=== PATIENT | male | born 1995 | race African-American/Black ===

== ENCOUNTER 2017-05-18 11:15 | Emergency (ER) | payer SELFPAY ==
[~2017-05-18] VITALS: Ht 172.7 cm; Wt 90.0 kg
[2017-05-18 11:17] VITALS: BP 140/96; PULSE 103; RESP 16; TEMP 100.6; O2SAT 97
--- NOTE | 2017-05-18 11:37 | PD ---
HPI Chief Complaint: Cold / Flu Symptoms Time Seen by Provider: 11:25 Travel History International Travel<30 days: No Contact w/Intl Traveler<30days: No Traveled to known affect area: No History of Present Illness HPI 22-year-old male presents to emergency department with sore throat for 5 days. Patient states that he developed a sore throat after his sister was sick. Patient states he has felt feverish. States he has a productive cough with clear sputum. Denies chest pain or shortness of breath. Denies abdominal pain or diarrhea. States he has had a hard time swallowing secondary to the swelling and pain. Also states that he has been drooling. Patient says he has had one episode of nonbloody, nonbilious vomiting which occurred Saturday. Denies chronic medical issues or medication use. PFSH Past Medical History Medical History: Denies Significant Hx Diminished Hearing: No Immunizations Current: Yes Tetanus Vaccination: < 5 Years Past Surgical History Surgical History: No Previous Surgery Social History Alcohol Use: No Tobacco Use: No Substance Use: No Allergies-Medications (Allergen,Severity, Reaction): Coded Allergies: No Known Allergies (Unverified , 05/18/17) Reported Meds & Prescriptions Reported Meds & Active Scripts Active Amoxicillin 500 Mg Tab 500 Mg PO TID 10 Days Review of Systems Except as stated in HPI: all other systems reviewed are Neg Physical Exam Narrative GENERAL: Well-nourished, well-developed patient. SKIN: Focused skin assessment warm/dry. HEAD: Normocephalic. EYES: No scleral icterus. No injection or drainage. NECK: Supple, trachea midline. No JVD. mild cervical lymphadenopathy. Throat: Pharyngeal injection with tonsillar hypertrophy. Mildly bulging tonsillar pillars, right greater than left. CARDIOVASCULAR: Regular rate and rhythm without murmurs, gallops, or rubs. RESPIRATORY: Breath sounds equal bilaterally. No accessory muscle use. GASTROINTESTINAL: Abdomen soft, non-tender, nondistended. MUSCULOSKELETAL: No cyanosis, or edema. BACK: Nontender without obvious deformity. No CVA tenderness. Data Data Last Documented VS Vital Signs Date Time Temp Pulse Resp B/P (MAP) Pulse Ox O2 Delivery O2 Flow Rate FiO2 05/18/17 13:06 05/18/17 11:17 100.6 103 16 97 Orders Orders Influenzae A/B Antigen (12/16/17 11:34) Group A Rapid Strep Screen (05/18/17 11:34) Ed Discharge Order (05/18/17 12:33) [facility] Medical Decision Making Medical Screen Exam Complete: Yes Emergency Medical Condition: Yes Differential Diagnosis Strep pharyngitis, viral pharyngitis, allergic pharyngitis, tonsillar abscess Narrative Course 22-year-old male presents to emergency department with sore throat for 5 days. Patient states that he developed a sore throat after his sister was sick. Patient states he has felt feverish. States he has a productive cough with clear sputum. Denies chest pain or shortness of breath. Denies abdominal pain or diarrhea. States he has had a hard time swallowing secondary to the swelling and pain. Also states that he has been drooling. Patient says he has had one episode of nonbloody, nonbilious vomiting which occurred Saturday. Denies chronic medical issues or medication use. Vital signs stable Physical exam- tonsillar hypertrophy, erythema, no exudate. mild anterior cervical adenopathy. Lungs clear to auscultation bilaterally Flu negative. Strep positive. Patient be treated amoxicillin. Social work referrals. Tylenol or Motrin per package instructions. Advised follow-up with primary care physician within 2-3 days. Advised to return to the emergency department for worsening or persistent symptoms. Diagnosis Primary Impression: Pharyngitis Qualified Codes: J02.0 - Streptococcal pharyngitis Referrals: Primary Care Physician Additional Instructions: Follow-up with primary care physician within 2-3 days. Take all medications as prescribed. If your symptoms persist or worsen, return to the ED. He may use salt water gargles for your symptoms. Take Tylenol or Motrin per package instructions for symptom relief Scripts Amoxicillin (Amoxicillin) 500 Mg Tab 500 MG PO TID for Infection for 10 Days, TAB 0 Refills Prov: Luis Finnegan MD 05/18/17 Disposition: 01 DISCHARGE HOME Condition: Stable Sonia Michel May 18, 2017 11:37
[2017-05-18] MEDS ORDERED: AMOX500T PO (12:04)
== END 2017-05-18 13:07 | disposition home or self-care (01) ==
LOC: NEPD 11:15
DX: J02.0 Streptococcal pharyngitis (principal); B95.0 Streptococcus, group A, as the cause of diseases classified elsewhere
CPT/HCPCS: 87804; 87880; 99282